=== PATIENT | female | born 1985 | race Hispanic/Latino ===

== ENCOUNTER → 2019-11-08 | Outpatient (CLI) | payer BC, OTHER ==
--- NOTE | 2019-11-08 11:04 | NUR ---
POST-BARIATRIC SLEEVE NUTRITION COUNSELING VISIT 1 TIME: 9:40-10:10 AM Patient had Bariatric Sleeve Procedure September 01, 2019, approximately 10 weeks ago. Patient has had a 43-pound weight loss since the procedure and had now hit a plateau. 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 Patient continues with small appetite, due to Sleeve. Patient has been consistent with HIIT workouts with weights and running 6 times per week for a duration of 30 minutes each. Patient with concerns regarding protein intake meeting protein needs. RD affirmed Patient for hard work and weight loss. RD encouraged Patient to continue in physical activity, water intake, and maintaining healthy habits for weight management. Protein needs were calculated and Pt was encouraged to increase protein intake for weight management. Patient has set three goals to achieve by 1 month follow up appointment: 1) Increase workout time and weight size in workouts 2) Increase water intake 3) Increase protein intake gradually. Addendum: 11/08/19 at [address] Amended: Links added.
== END | disposition home or self-care (01) ==
LOC: DTH 09:13
PROVIDERS: ATTEND Surgery
DX: E66.01 Morbid (severe) obesity due to excess calories (principal)
CPT/HCPCS: 97803